=== PATIENT | female | born 1990 | race Caucasian/White ===

== ENCOUNTER → 2018-01-01 12:38 | Outpatient (CLI) | payer BC ==
[2015-04-21 02:24] VITALS: BMI 33.2
[~2018-01-01 12:38] MED LIST: CLARITIN 10 MG10 MG PO; FLUTICASONE PRO16 GM NASAL; IBUPROFEN600 MG PO; PERCOCET 10/3251 TA1 PO; PERCOCET 5-3251 TAB PO
[2018-01-01 13:13] LABS: BASOPHILS 0.1 % (0-2); EOSINOPHILS 0.2 % (0-7); HEMATOCRIT 31.4 % (36.0-48.0); HEMOGLOBIN 10.1 g/dL (12-16); IMMATURE GRANULOCYTES 0.2 % (0-5); MCH 27.5 pg (26.0-34.0); MCHC 32.2 g/dL (31.0-37.0); MCV 85.6 fL (80.0-100.0); MONOCYTES 7.8 % (2-11); NEUTROPHILS 65.7 % (40-80); RBC 3.67 10x6/uL (4.00-5.40); WBC 9.1 10x3/uL (4.8-10.8)
[2018-01-01 13:18] LABS: PLATELET COUNT 300 10x3/uL (130-400)
[2018-01-01 13:42] LABS: ALBUMIN 2.5 g/dL (3.4-5.0); ALKALINE PHOSPHATASE 203 U/L (46-116); ALT (SGPT) 11 U/L (10-68); BILIRUBIN - DIRECT 0.11 mg/dL (0.00-0.30); BILIRUBIN - INDIRECT 0.23 mg/dL (0.00-1.00); BILIRUBIN - TOTAL 0.34 mg/dL (0.2-1.3); CALC OSMOLALITY 271 mosm/kg (275-300); CALCIUM 8.8 mg/dL (8.5-10.1); CARBON DIOXIDE 23.3 mmol/L (21.0-32.0); CHLORIDE - SERUM 103 mmol/L (98-107); CREATININE - SERUM 0.4 mg/dL (0.6-1.3); GLUCOSE 83 mg/dL (74-106); POTASSIUM - SERUM 3.6 mmol/L (3.5-5.1); PROTEIN - SERUM 5.8 g/dL (6.4-8.2); SODIUM 138 mmol/L (136-145); UREA NITROGEN 3 mg/dL (7-18); URIC ACID 3.2 mg/dL (2.6-7.2); eGFR NON AFRICAN AMERICAN > 90 mL/min (90-120)
[2018-01-01 13:46] LABS: APPEARANCE HAZY (CLEAR); BILIRUBIN NEGATIVE (NEGATIVE); COLOR STRAW (YELLOW); GLUCOSE NEGATIVE (NEGATIVE); KETONE SMALL mg/dL (NEGATIVE); NITRITE NEGATIVE (NEGATIVE); PROTEIN NEGATIVE (NEGATIVE); UROBILINOGEN NORMAL (NORMAL)
[2018-01-01 13:49] LABS: BACTERIA MODERATE /hpf (NONE SEEN); MUCUS <1+ /lpf (NONE SEEN); RED CELLS - URINE RARE /hpf (0-5)
[2018-01-02 18:36] LABS: PROTEIN - URINE 10.6 mg/dL (0.0-11.9)
== END | disposition home or self-care (01) ==
LOC: D.LDO 12:38
PROVIDERS: Obstetrics & Gynecology
DX: O13.3 Gestational [pregnancy-induced] hypertension without significant proteinuria, third trimester (principal); Z3A.34 34 weeks gestation of pregnancy

== ENCOUNTER 2018-02-01 05:27 | Inpatient (IN) | payer BC ==
[2018-02-01] VITALS (10 sets, daily range): BP systolic 115–137; BP diastolic 64–92; Ht 157.5 cm; Wt 87.5 kg
[~2018-02-01] VITALS: Ht 157.5 cm; Wt 87.5 kg
[~2018-02-01 05:27] MED LIST changes: -CLARITIN 10 MG10 MG PO; -FLUTICASONE PRO16 GM NASAL; -PERCOCET 10/3251 TA1 PO
[2018-02-01] MEDS ORDERED: CLARITIN 10 MG10 MG PO (06:06)
[2018-02-01] MEDS ORDERED: FLUTICASONE PRO16 GM NASAL (06:07)
[2018-02-01 06:50] LABS: HEMATOCRIT 32.3 % (36.0-48.0); HEMOGLOBIN 10.3 g/dL (12-16); MCH 26.5 pg (26.0-34.0); MCHC 31.9 g/dL (31.0-37.0); MCV 83.2 fL (80.0-100.0); MEAN PLATELET VOLUME 10.4 fL (7.4-10.4); RBC 3.88 10x6/uL (4.00-5.40); RDW 14.8 % (11.5-14.5)
[2018-02-01 12:23] LABS: APPEARANCE HAZY (CLEAR); BACTERIA MANY /hpf (NONE SEEN); BILIRUBIN NEGATIVE (NEGATIVE); CALCIUM OXALATE CRYSTALS 0-5 /hpf (NONE SEEN); COLOR YELLOW (YELLOW); EPITHELIAL CELLS 0-5 /hpf (0-5); GLUCOSE NEGATIVE (NEGATIVE); KETONE NEGATIVE (NEGATIVE); MUCUS <1+ /lpf (NONE SEEN); NITRITE NEGATIVE (NEGATIVE); PROTEIN NEGATIVE (NEGATIVE); RED CELLS - URINE RARE /hpf (0-5); SPECIFIC GRAVITY 1.015 (1.005-1.020); UROBILINOGEN NORMAL (NORMAL); WHITE CELLS - URINE 0-5 /hpf (0-5)
[2018-02-02 00:05] VITALS: BP 128/66
[2018-02-02 04:05] VITALS: BP 120/59
[2018-02-02 04:35] VITALS: BP 129/86
[2018-02-02 06:17] LABS: BASOPHILS 0.1 % (0-2); EOSINOPHILS 0.4 % (0-7); HEMATOCRIT 29.7 % (36.0-48.0); HEMOGLOBIN 9.4 g/dL (12-16); IMMATURE GRANULOCYTES 0.2 % (0-5); LYMPHOCYTES 21.5 % (15-50); MCH 26.3 pg (26.0-34.0); MCHC 31.6 g/dL (31.0-37.0); MEAN PLATELET VOLUME 10.5 fL (7.4-10.4); MONOCYTES 9.9 % (2-11); NEUTROPHILS 67.9 % (40-80); PLATELET COUNT 251 10x3/uL (130-400); RBC 3.58 10x6/uL (4.00-5.40); RDW 14.9 % (11.5-14.5)
[2018-02-02 07:26] LABS: RAPID PLASMA REAGIN Non Reactive (Non Reactive)
[2018-02-02 08:20] VITALS: BP 120/70
[2018-02-02 19:53] VITALS: BP 130/62
[2018-02-02 22:57] VITALS: BP 121/54
[2018-02-03 07:44] VITALS: BP 136/63
[2018-02-03] MEDS ORDERED: PERCOCET 10/3251 TA1 PO (09:20)
[2018-02-03] MEDS ORDERED: IBUPROFEN600 MG PO (09:21)
== END 2018-02-03 11:30 | disposition home or self-care (01) | DRG 766 ==
LOC: D.WS 05:27 → D.LD 05:27 → D.SDCHOLD 07:30 → D.LD 07:30 → D.WS 10:26 → D.LD 02-02 18:05
PROVIDERS: Obstetrics & Gynecology
PROC: 10D00Z1 Extraction of Products of Conception, Low, Open Approach (ICD-10-PCS; principal; 2018-02-01 07:30)
PROC: 0UB70ZZ Excision of Bilateral Fallopian Tubes, Open Approach (ICD-10-PCS; 2018-02-01 07:30)
DX: O99.824 Streptococcus B carrier state complicating childbirth (principal); Z37.0 Single live birth; Z3A.39 39 weeks gestation of pregnancy; Z64.1 Problems related to multiparity; Z30.2 Encounter for sterilization; Z30.09 Encounter for other general counseling and advice on contraception; O34.219 Maternal care for unspecified type scar from previous cesarean delivery